=== PATIENT | male | born 1955 | race African-American/Black ===

== ENCOUNTER 2016-10-31 09:29 | Outpatient (CLI) | payer MEDICARE ==
--- NOTE | 2016-10-31 12:14 | ULT ---
RENAL SONOGRAM: History: Chronic renal insufficiency. Vascular disease. FINDINGS: The right kidney is 10.7 cm in length and the left 9.6 cm. Each has a normal sonographic appearance without evidence of mass, stone, or hydronephrosis. Urinary bladder has a normal appearance. IMPRESSION: No evidence of urinary tract obstruction. No significant abnormalities are demonstrated. POS: [facility]
== END 2016-10-31 09:30 | disposition home or self-care (01) ==
LOC: MADULT 09:29
PROVIDERS: ATTEND Internal Medicine Nephrology
DX: I12.9 Hypertensive chronic kidney disease with stage 1 through stage 4 chronic kidney disease, or unspecified chronic kidney disease (principal); N18.3 Chronic kidney disease, stage 3 (moderate)
CPT/HCPCS: 76770

== ENCOUNTER 2018-02-11 15:18 | Emergency (ER) | payer MEDICARE, MEDICAID | END 2018-02-11 17:25 | LOC: MADERS 15:18 | DX: I12.0 Hypertensive chronic kidney disease with stage 5 chronic kidney disease or end stage renal disease (principal); N18.6 End stage renal disease; E11.9 Type 2 diabetes mellitus without complications; N40.0 Benign prostatic hyperplasia without lower urinary tract symptoms; E78.5 Hyperlipidemia, unspecified; Z86.73 Personal history of transient ischemic attack (TIA), and cerebral infarction without residual deficits; F03.90 Unspecified dementia, unspecified severity, without behavioral disturbance, psychotic disturbance, mood disturbance, and anxiety; F31.9 Bipolar disorder, unspecified; Z79.899 Other long term (current) drug therapy; Z79.4 Long term (current) use of insulin | CPT/HCPCS: 99283 ==

== ENCOUNTER 2021-04-19 10:34 | Emergency (ER) | payer MEDICAID, MEDICARE, OTHER ==
[~2021-04-19 10:34] MED LIST: Sodium Chloride 0.9% 1,000 ML BAG ONE
[2021-04-19 11:34] LABS: ALT (SGPT) Less than 7 U/L (8-55); AST (SGOT) 5 U/L (5-34); Albumin 3.2 g/dL (3.4-4.8); Alkaline Phosphatase 29 U/L (40-110); Anion Gap 13 mmol/L (10-20); BUN (Urea Nitrogen) 55 mg/dL (8.4-25.7); Bilirubin, Total 0.2 mg/dL (0.2-1.2); Calc. Creatinine Clearance 0 mL/min (70-130); Carbon Dioxide 25 mmol/L (23-31); Chloride 106 mmol/L (98-107); Globulin 2.7 g/dL (2.4-3.5); Glucose 95 mg/dL (80-115); Potassium 5.1 mmol/L (3.5-5.1); Protein, Total 5.9 g/dL (5.8-8.1); Sodium 139 mmol/L (136-145)
[2021-04-19 11:42] LABS: #Eosinphils 0.1 thou/uL (0.0-0.7); #Lymphocytes 1.3 thou/uL (1.20-3.40); #Monocytes 0.5 thou/uL (0.11-0.59); #Neutrophils 2.5 thou/uL (1.40-6.50); %Basophils 0.9 % (0.0-1.0); %Eosinophils 2.4 % (0.0-10.0); %Monocytes 10.1 % (0.0-10.0); %Neutrophils 56.6 % (42.0-75.0); Hemoglobin 9.1 g/dL (14.0-18.0); Mean Corpuscular HGB CONC 34.1 g/dL (32.0-36.0); Mean Corpuscular Hemoglobin 33.8 pg (27.0-31.0); Mean Corpuscular Volume 99.2 fL (78.0-98.0); Mean Platelet Volume 9.9 fL (7.4-10.4); Platelet Count 105 thou/uL (130-400); Red Blood Cell (RBC) Count 2.67 mill/uL (4.70-6.10); White Blood Cell (WBC) Count 4.5 thou/uL (4.8-10.8)
[2021-04-19 11:53] LABS: Platelet Morphology Comment Appears Decreased
[2021-04-19 11:55] LABS: Hypochromia SLIGHT = 6-15 cells (100X) (0-5/hpf)
[2021-04-19] MEDS ORDERED: Cyanocobalamin (Vitamin B-12) 1,000 MCG TAB PO SCH (13:00)
[2021-04-19] MEDS ORDERED: Folic Acid 1 MG TAB PO SCH (13:15)
== END 2021-04-19 19:32 | disposition short-term general hospital (02) ==
LOC: MADERS 10:34
DX: N17.9 Acute kidney failure, unspecified (principal); E86.0 Dehydration; I12.0 Hypertensive chronic kidney disease with stage 5 chronic kidney disease or end stage renal disease; E11.22 Type 2 diabetes mellitus with diabetic chronic kidney disease; N18.30 Chronic kidney disease, stage 3 unspecified; N40.0 Benign prostatic hyperplasia without lower urinary tract symptoms; E78.5 Hyperlipidemia, unspecified; Z79.899 Other long term (current) drug therapy
CPT/HCPCS: 80053; 82550; 85025; 99284; J7050